=== PATIENT | male | born 1945 | race Caucasian/White ===

== ENCOUNTER 2021-09-16 12:10 | Inpatient (IN) | payer MEDICARE, OTHER, MEDICAID ==
[~2021-09-16 12:10] MED LIST: Enoxaparin 30 MG/0.3 ML Syringe SUBCUT SCH
[2021-09-16 13:30] LABS: CHLORIDE,CL 112 mEq/L (98-106); SODIUM,NA 153 mEq/L (136-145)
[2021-09-16] MEDS ORDERED: Ondansetron 4 MG/2 ML SDV IV PRN (14:38)
[2021-09-16] MEDS ORDERED: Acetaminophen 325 MG Tab PO PRN (14:38)
[2021-09-16] MEDS ORDERED: Sodium Chloride 0.9% 10 ML Syringe FLUSH PRN (14:38)
[2021-09-16] MEDS ORDERED: Bisacodyl 5 MG Tab PO PRN (14:46)
[2021-09-16] MEDS: Lactated Ringers 1,000 ML IV SCH (16:31)
[2021-09-16] MEDS: ZIPRASIDONE HCL 60 MG PO SCH (19:50)
[2021-09-16] MEDS: Carbidopa/Levodopa 25-100 MG Tab PO SCH (19:50)
[2021-09-16] MEDS: Melatonin 3 MG Tab PO SCH (19:50)
[2021-09-17] MEDS: Lactated Ringers 1,000 ML IV SCH ×2 (02:12→13:22)
[2021-09-17] MEDS ORDERED: Non-Formulary Medication 1 Each (Cholecalciferol (Vitamin D3) [Vitamin D3] 1,000 UNIT Caps PO SCH (08:00)
[2021-09-17] MEDS: Carbidopa/Levodopa 25-100 MG Tab PO SCH ×3 (08:04→19:45)
[2021-09-17] MEDS: Hydrochlorothiazide 12.5 MG Cap PO SCH (08:04)
[2021-09-17] MEDS: Enoxaparin 30 MG/0.3 ML Syringe SUBCUT SCH (08:04)
[2021-09-17] MEDS: Losartan 100 MG Tab PO SCH (08:04)
[2021-09-17] MEDS: ZIPRASIDONE HCL 60 MG PO SCH ×2 (08:05→19:46)
[2021-09-17 08:17] LABS: CHLORIDE,CL 116 mEq/L (98-106); SODIUM,NA 157 mEq/L (136-145)
[2021-09-17] MEDS ORDERED: Iopamidol 755 Mg/ML 100 ML Bottle IVPUSH ONE (10:36)
[2021-09-17] MEDS: Melatonin 3 MG Tab PO SCH (19:44)
[2021-09-18] MEDS: Lactated Ringers 1,000 ML IV SCH ×3 (00:04→20:12)
[2021-09-18 06:35] LABS: CHLORIDE,CL 115 mEq/L (98-106); SODIUM,NA 156 mEq/L (136-145)
[2021-09-18] MEDS: Losartan 100 MG Tab PO SCH (07:49)
[2021-09-18] MEDS: Hydrochlorothiazide 12.5 MG Cap PO SCH (07:49)
[2021-09-18] MEDS: Enoxaparin 30 MG/0.3 ML Syringe SUBCUT SCH (07:49)
[2021-09-18] MEDS: Carbidopa/Levodopa 25-100 MG Tab PO SCH ×3 (07:51→19:37)
[2021-09-18] MEDS: ZIPRASIDONE HCL 60 MG PO SCH ×2 (07:59→19:38)
[2021-09-18] MEDS ORDERED: Polyethylene Glycol 3350 Powder 17 GM Packet PO ONE (08:06)
[2021-09-18] MEDS: Melatonin 3 MG Tab PO SCH (19:37)
[2021-09-19] MEDS: Lactated Ringers 1,000 ML IV SCH (06:04)
[2021-09-19 07:33] LABS: CHLORIDE,CL 110 mEq/L (98-106); SODIUM,NA 147 mEq/L (136-145)
[2021-09-19 07:49] VITALS: BP 132/67; PULSE 69
[2021-09-19] MEDS: Hydrochlorothiazide 12.5 MG Cap PO SCH (07:49)
[2021-09-19] MEDS: Losartan 100 MG Tab PO SCH (07:50)
[2021-09-19] MEDS: Enoxaparin 30 MG/0.3 ML Syringe SUBCUT SCH (07:50)
[2021-09-19] MEDS: Carbidopa/Levodopa 25-100 MG Tab PO SCH (07:50)
[2021-09-19] MEDS: ZIPRASIDONE HCL 60 MG PO SCH (07:53)
[2021-09-19] MEDS ORDERED: Tamsulosin 0.4 MG Cap.ER PO SCH (09:30)
== END 2021-09-19 10:35 | disposition home or self-care (01) | DRG 395 ==
LOC: CC.FCMC 12:10 → CC.MS 12:10 → UNDOADMIN 13:59 → CC.MS 14:49
PROVIDERS: ADMIT Physician Assistant Medical; ATTEND Family Medicine
PROC: 0D9670Z Drainage of Stomach with Drainage Device, Via Natural or Artificial Opening (ICD-10-PCS; principal; 2021-09-16)
DX: K63.89 Other specified diseases of intestine (principal); R33.9 Retention of urine, unspecified; I10 Essential (primary) hypertension; N40.0 Benign prostatic hyperplasia without lower urinary tract symptoms; N32.3 Diverticulum of bladder; G30.9 Alzheimer's disease, unspecified; F02.80 Dementia in other diseases classified elsewhere, unspecified severity, without behavioral disturbance, psychotic disturbance, mood disturbance, and anxiety; F41.9 Anxiety disorder, unspecified; F32.A Depression, unspecified; K31.89 Other diseases of stomach and duodenum; Z79.899 Other long term (current) drug therapy; Z88.8 Allergy status to other drugs, medicaments and biological substances
CPT/HCPCS: 36415; 51702; 71045; 74019; 74177; 80048; 80053; 81001; 85025; 86140; A9270-GY; J1650; J7120; Q9967

== ENCOUNTER 2021-11-09 13:22 | Emergency (ER) | payer MEDICARE, OTHER, MEDICAID ==
[2021-11-09 14:00] VITALS: BP 131/70; PULSE 79
[2021-11-09] MEDS ORDERED: Sodium Chloride 0.9% 10 ML Syringe FLUSH PRN (14:19)
[2021-11-09] MEDS ORDERED: Morphine 2 MG/ML SYRINGE IV ONE (14:20)
== END 2021-11-09 15:15 | disposition critical access hospital (66) ==
LOC: CC.ED 13:22
DX: S72.002A Fracture of unspecified part of neck of left femur, initial encounter for closed fracture (principal); I10 Essential (primary) hypertension; N40.0 Benign prostatic hyperplasia without lower urinary tract symptoms; Z88.8 Allergy status to other drugs, medicaments and biological substances; Z79.899 Other long term (current) drug therapy; W18.30XA Fall on same level, unspecified, initial encounter; Y92.129 Unspecified place in nursing home as the place of occurrence of the external cause
CPT/HCPCS: 96374; 99284; 99284-25; J2270

== ENCOUNTER 2023-03-31 11:15 | Inpatient (IN) | payer MEDICARE, OTHER, MEDICAID ==
[2023-03-31] MEDS ORDERED: Piperacillin/Tazobactam 4.5 GM in Sodium Chloride 0.9% 100 ML IV ONE (11:44)
[2023-03-31] MEDS ORDERED: Sodium Chloride 0.9% 1,000 ML IV ONE (11:44)
[2023-03-31 11:49] LABS: BASOPHILS ABSOLUTE AUTO 0.02 10^3/uL (0.00-0.50); BASOPHILS PERCENT AUTO 0.1 % (0-1); EOSINOPHILS ABSOLUTE AUTO 0.01 10^3/uL (0.00-1.50); EOSINOPHILS PERCENT AUTO 0.1 % (0-6); HEMATOCRIT 45.1 % (42.0-52.0); HEMOGLOBIN 15.1 g/dL (14.0-18.0); IMMATURE GRAN ABSOLUTE AUTO 0.01 10^3/uL (0.00-0.49); IMMATURE GRAN PERCENT AUTO 0.1 % (0.0-4.9); LYMPHOCYTES ABSOLUTE AUTO 1.46 10^3/uL (0.60-5.00); MEAN CORPUSCULAR HEMOGLOBIN 32.3 pg (27.0-32.0); MEAN CORPUSCULAR HGB CONC 33.5 g/dL (32.0-36.0); MEAN CORPUSCULAR VOLUME 96.6 fL (83.0-97.0); MONOCYTES ABSOLUTE AUTO 1.29 10^3/uL (0.00-1.50); MONOCYTES PERCENT AUTO 8.8 % (0-10); NEUTROPHILS ABSOLUTE AUTO 11.79 x10^3/uL (1.80-8.00); NEUTROPHILS PERCENT AUTO 80.9 % (41-71); PLATELET COUNT,PLT 170 10^3/uL (150-400); RED BLOOD CELL COUNT 4.67 x10^6/uL (4.50-6.00); WHITE BLOOD CELL COUNT,WBC 14.6 10^3/uL (4.0-11.0)
[2023-03-31 12:07] LABS: ALBUMIN 3.2 g/dL (3.4-5.0); BILIRUBIN TOTAL 0.7 mg/dL (0.0-1.0); C-REACTIVE PROTEIN 2.76 mg/dL (<=0.30); CALCIUM 9.7 mg/dL (8.4-10.1); EST CRCL DRUG DOSING (CG) 55.52 mL/min; MAGNESIUM 1.7 mg/dL (1.8-2.4); POTASSIUM,K 3.9 mEq/L (3.5-5.0); PROTEIN TOTAL,TP 7.5 g/dL (6.4-8.2)
[2023-03-31] MEDS ORDERED: Docusate Sodium 100 MG Cap PO PRN (14:36)
[2023-03-31] MEDS ORDERED: Polyethylene Glycol 3350 Powder 17 GM Packet PO PRN (14:36)
[2023-03-31] MEDS ORDERED: Sodium Chloride 0.9% 1,000 ML IV STA (14:36)
[2023-03-31] MEDS ORDERED: Albuterol/Ipratropium 3.0-0.5 MG/3 ML Neb Soln NEB PRN (14:36)
[2023-03-31] MEDS: Carbidopa/Levodopa 25-100 MG Tab PO SCH ×2 (15:13→19:21)
[2023-03-31] MEDS: Acetaminophen 325 MG Tab PO PRN ×2 (17:23→23:45)
[2023-03-31] MEDS: Piperacillin/Tazobactam 3.375 GM in Sodium Chloride 0.9% 100 ML IV SCH (19:20)
[2023-03-31] MEDS: Melatonin 3 MG Tab PO SCH (19:21)
[2023-03-31] MEDS: Divalproex Sodium Delayed-Release 250 MG Tab.CR PO SCH (19:21)
[2023-03-31] MEDS: ZIPRASIDONE HCL 60 MG PO SCH (19:21)
[2023-03-31] MEDS: Enoxaparin 40 MG/0.4 ML Syringe SUBCUT SCH (19:21)
[2023-04-01] MEDS: Piperacillin/Tazobactam 3.375 GM in Sodium Chloride 0.9% 100 ML IV SCH ×3 (03:33→19:33)
[2023-04-01 07:17] LABS: BASOPHILS ABSOLUTE AUTO 0.01 10^3/uL (0.00-0.50); BASOPHILS PERCENT AUTO 0.1 % (0-1); EOSINOPHILS ABSOLUTE AUTO 0.05 10^3/uL (0.00-1.50); EOSINOPHILS PERCENT AUTO 0.5 % (0-6); HEMATOCRIT 39.2 % (42.0-52.0); HEMOGLOBIN 12.9 g/dL (14.0-18.0); IMMATURE GRAN ABSOLUTE AUTO 0.01 10^3/uL (0.00-0.49); IMMATURE GRAN PERCENT AUTO 0.1 % (0.0-4.9); LYMPHOCYTES ABSOLUTE AUTO 1.94 10^3/uL (0.60-5.00); LYMPHOCYTES PERCENT AUTO 18.2 % (24-44); MEAN CORPUSCULAR HEMOGLOBIN 32.3 pg (27.0-32.0); MEAN CORPUSCULAR HGB CONC 32.9 g/dL (32.0-36.0); MEAN CORPUSCULAR VOLUME 98.2 fL (83.0-97.0); MONOCYTES PERCENT AUTO 7.5 % (0-10); NEUTROPHILS ABSOLUTE AUTO 7.87 x10^3/uL (1.80-8.00); NEUTROPHILS PERCENT AUTO 73.6 % (41-71); PLATELET COUNT,PLT 141 10^3/uL (150-400); RED BLOOD CELL COUNT 3.99 x10^6/uL (4.50-6.00); WHITE BLOOD CELL COUNT,WBC 10.7 10^3/uL (4.0-11.0)
[2023-04-01] MEDS: Losartan 25 MG Tab PO SCH (07:39)
[2023-04-01] MEDS: Tamsulosin 0.4 MG Cap.ER PO SCH (07:40)
[2023-04-01] MEDS: Divalproex Sodium Delayed-Release 250 MG Tab.CR PO SCH ×2 (07:40→19:32)
[2023-04-01] MEDS: Carbidopa/Levodopa 25-100 MG Tab PO SCH ×3 (07:40→19:32)
[2023-04-01] MEDS: ZIPRASIDONE HCL 60 MG PO SCH ×2 (07:42→19:37)
[2023-04-01 07:56] LABS: CALCIUM 9.1 mg/dL (8.4-10.1); EST CRCL DRUG DOSING (CG) 55.52 mL/min; MAGNESIUM 1.7 mg/dL (1.8-2.4); POTASSIUM,K 3.8 mEq/L (3.5-5.0)
[2023-04-01] MEDS: Psyllium with Sucrose Powder 3.4 GM Packet PO SCH (08:05)
[2023-04-01] MEDS: Albuterol/Ipratropium 3.0-0.5 MG/3 ML Neb Soln NEB SCH ×3 (11:43→19:32)
[2023-04-01] MEDS: Enoxaparin 40 MG/0.4 ML Syringe SUBCUT SCH (19:32)
[2023-04-01] MEDS: Melatonin 3 MG Tab PO SCH (19:32)
[2023-04-02] MEDS: Piperacillin/Tazobactam 3.375 GM in Sodium Chloride 0.9% 100 ML IV SCH ×3 (03:34→19:40)
[2023-04-02] MEDS: Divalproex Sodium Delayed-Release 250 MG Tab.CR PO SCH ×2 (07:27→19:41)
[2023-04-02] MEDS: Carbidopa/Levodopa 25-100 MG Tab PO SCH ×3 (07:28→19:41)
[2023-04-02] MEDS: Tamsulosin 0.4 MG Cap.ER PO SCH (07:28)
[2023-04-02] MEDS: Albuterol/Ipratropium 3.0-0.5 MG/3 ML Neb Soln NEB SCH ×4 (07:28→19:41)
[2023-04-02] MEDS: ZIPRASIDONE HCL 60 MG PO SCH ×2 (07:29→19:39)
[2023-04-02] MEDS: Losartan 25 MG Tab PO SCH (07:34)
[2023-04-02 07:44] LABS: BASOPHILS ABSOLUTE AUTO 0.01 10^3/uL (0.00-0.50); BASOPHILS PERCENT AUTO 0.2 % (0-1); EOSINOPHILS ABSOLUTE AUTO 0.23 10^3/uL (0.00-1.50); HEMATOCRIT 38.2 % (42.0-52.0); HEMOGLOBIN 12.5 g/dL (14.0-18.0); IMMATURE GRAN ABSOLUTE AUTO 0.01 10^3/uL (0.00-0.49); IMMATURE GRAN PERCENT AUTO 0.2 % (0.0-4.9); LYMPHOCYTES ABSOLUTE AUTO 1.41 10^3/uL (0.60-5.00); LYMPHOCYTES PERCENT AUTO 24.2 % (24-44); MEAN CORPUSCULAR HEMOGLOBIN 32.4 pg (27.0-32.0); MEAN CORPUSCULAR HGB CONC 32.7 g/dL (32.0-36.0); MONOCYTES ABSOLUTE AUTO 0.62 10^3/uL (0.00-1.50); MONOCYTES PERCENT AUTO 10.7 % (0-10); NEUTROPHILS ABSOLUTE AUTO 3.54 x10^3/uL (1.80-8.00); NEUTROPHILS PERCENT AUTO 60.7 % (41-71); PLATELET COUNT,PLT 128 10^3/uL (150-400); RED BLOOD CELL COUNT 3.86 x10^6/uL (4.50-6.00); WHITE BLOOD CELL COUNT,WBC 5.8 10^3/uL (4.0-11.0)
[2023-04-02 07:50] LABS: CALCIUM 9.2 mg/dL (8.4-10.1); CREATININE 0.8 mg/dL (0.7-1.3); EST CRCL DRUG DOSING (CG) 69.4 mL/min; POTASSIUM,K 3.7 mEq/L (3.5-5.0)
[2023-04-02] MEDS: Enoxaparin 40 MG/0.4 ML Syringe SUBCUT SCH (19:40)
[2023-04-02] MEDS: Melatonin 3 MG Tab PO SCH (19:41)
[2023-04-03] MEDS: Piperacillin/Tazobactam 3.375 GM in Sodium Chloride 0.9% 100 ML IV SCH (03:52)
[2023-04-03 07:55] LABS: BASOPHILS ABSOLUTE AUTO 0.01 10^3/uL (0.00-0.50); BASOPHILS PERCENT AUTO 0.1 % (0-1); EOSINOPHILS ABSOLUTE AUTO 0.13 10^3/uL (0.00-1.50); EOSINOPHILS PERCENT AUTO 1.9 % (0-6); HEMATOCRIT 39.2 % (42.0-52.0); IMMATURE GRAN ABSOLUTE AUTO 0.01 10^3/uL (0.00-0.49); IMMATURE GRAN PERCENT AUTO 0.1 % (0.0-4.9); LYMPHOCYTES ABSOLUTE AUTO 1.51 10^3/uL (0.60-5.00); LYMPHOCYTES PERCENT AUTO 21.9 % (24-44); MEAN CORPUSCULAR HEMOGLOBIN 32.8 pg (27.0-32.0); MEAN CORPUSCULAR HGB CONC 33.2 g/dL (32.0-36.0); MONOCYTES PERCENT AUTO 10.2 % (0-10); NEUTROPHILS ABSOLUTE AUTO 4.53 x10^3/uL (1.80-8.00); NEUTROPHILS PERCENT AUTO 65.8 % (41-71); PLATELET COUNT,PLT 153 10^3/uL (150-400); RED BLOOD CELL COUNT 3.96 x10^6/uL (4.50-6.00); WHITE BLOOD CELL COUNT,WBC 6.9 10^3/uL (4.0-11.0)
[2023-04-03 07:59] LABS: CALCIUM 9.6 mg/dL (8.4-10.1); CREATININE 0.9 mg/dL (0.7-1.3); EST CRCL DRUG DOSING (CG) 61.69 mL/min; POTASSIUM,K 3.3 mEq/L (3.5-5.0)
[2023-04-03] MEDS: Tamsulosin 0.4 MG Cap.ER PO SCH (08:33)
[2023-04-03] MEDS: Albuterol/Ipratropium 3.0-0.5 MG/3 ML Neb Soln NEB SCH ×2 (08:33→12:04)
[2023-04-03] MEDS: Losartan 25 MG Tab PO SCH (08:33)
[2023-04-03] MEDS: ZIPRASIDONE HCL 60 MG PO SCH (08:34)
[2023-04-03] MEDS: Divalproex Sodium Delayed-Release 250 MG Tab.CR PO SCH (08:34)
[2023-04-03] MEDS: Psyllium with Sucrose Powder 3.4 GM Packet PO SCH (08:34)
[2023-04-03] MEDS: Carbidopa/Levodopa 25-100 MG Tab PO SCH (08:34)
[2023-04-03] MEDS ORDERED: Potassium Chloride 10 MEQ Tab.ER PO ONE (08:47)
[2023-04-03] MEDS ORDERED: Piperacillin/Tazobactam 3.375 GM in Sodium Chloride 0.9% 100 ML IV ONE (12:15)
[2023-04-03] MEDS: Potassium Chloride 10 MEQ Tab.ER PO ONE ×2 (12:18→12:38)
[2023-04-03 13:56] VITALS: BP 135/68; PULSE 68
== END 2023-04-03 13:55 | disposition home or self-care (01) | DRG 195 ==
LOC: CC.ED 11:15 → CC.MS 12:50 → UNDOADMIN 12:50 → CC.MS 13:25
PROVIDERS: ADMIT Nurse Practitioner; ATTEND Nurse Practitioner
DX: J18.9 Pneumonia, unspecified organism (principal); Y95 Nosocomial condition; E86.0 Dehydration; G20 Parkinson's disease; F03.90 Unspecified dementia, unspecified severity, without behavioral disturbance, psychotic disturbance, mood disturbance, and anxiety; F20.9 Schizophrenia, unspecified; Z20.822 Contact with and (suspected) exposure to COVID-19; I10 Essential (primary) hypertension; N40.0 Benign prostatic hyperplasia without lower urinary tract symptoms; G47.00 Insomnia, unspecified; F41.9 Anxiety disorder, unspecified; F31.9 Bipolar disorder, unspecified; K59.00 Constipation, unspecified; R09.02 Hypoxemia; B96.89 Other specified bacterial agents as the cause of diseases classified elsewhere; Z88.8 Allergy status to other drugs, medicaments and biological substances; Z79.899 Other long term (current) drug therapy
CPT/HCPCS: 36415; 71045; 80048; 80053; 83605; 83735; 84484; 85025; 86140; 87040; 87070; 87077; 87205; 87804; 93005; 93010; 94640; 99223; 99232; 99233; 99238; A9270-GY; J1650; J2543; J3490; J7030; J7620-GY; U0002

== ENCOUNTER 2023-04-08 13:25 | Emergency (ER) | payer MEDICARE, OTHER, MEDICAID ==
[2023-04-08] MEDS ORDERED: Sodium Chloride 0.9% 10 ML Syringe FLUSH PRN (13:32)
[2023-04-08 13:39] VITALS: BP 118/81
[2023-04-08 13:41] VITALS: PULSE 108
[2023-04-08] MEDS ORDERED: Iopamidol 755 Mg/ML 100 ML Bottle IVPUSH ONE (13:45)
[2023-04-08 14:04] LABS: BASOPHILS ABSOLUTE AUTO 0.02 10^3/uL (0.00-0.50); BASOPHILS PERCENT AUTO 0.1 % (0-1); HEMATOCRIT 45.9 % (42.0-52.0); IMMATURE GRAN ABSOLUTE AUTO 0.03 10^3/uL (0.00-0.49); IMMATURE GRAN PERCENT AUTO 0.2 % (0.0-4.9); LYMPHOCYTES ABSOLUTE AUTO 1.81 10^3/uL (0.60-5.00); LYMPHOCYTES PERCENT AUTO 9.7 % (24-44); MEAN CORPUSCULAR HEMOGLOBIN 32.5 pg (27.0-32.0); MEAN CORPUSCULAR HGB CONC 32.7 g/dL (32.0-36.0); MEAN CORPUSCULAR VOLUME 99.6 fL (83.0-97.0); MONOCYTES ABSOLUTE AUTO 1.75 10^3/uL (0.00-1.50); MONOCYTES PERCENT AUTO 9.4 % (0-10); NEUTROPHILS ABSOLUTE AUTO 14.99 x10^3/uL (1.80-8.00); NEUTROPHILS PERCENT AUTO 80.6 % (41-71); PLATELET COUNT,PLT 283 10^3/uL (150-400); RED BLOOD CELL COUNT 4.61 x10^6/uL (4.50-6.00); WHITE BLOOD CELL COUNT,WBC 18.6 10^3/uL (4.0-11.0)
[2023-04-08 14:18] LABS: ALANINE AMINOTRANSFERASE,ALT 55 U/L (12-78); ALBUMIN 2.6 g/dL (3.4-5.0); ALKALINE PHOSPHATASE 121 U/L (46-116); ASPARTATE AMNIOTRANSFERASE,AST 40 U/L (15-37); BILIRUBIN TOTAL 0.5 mg/dL (0.0-1.0); BLOOD UREA NITROGEN,BUN 38 mg/dL (7-18); C-REACTIVE PROTEIN 5.02 mg/dL (<=0.30); CALCIUM 10.5 mg/dL (8.4-10.1); CARBON DIOXIDE,CO2 29 mmol/L (21-32); CREATININE 1.7 mg/dL (0.7-1.3); GLUCOSE RANDOM 167 mg/dL (75-99)
[2023-04-08 14:25] LABS: CHLORIDE,CL 109 mEq/L (98-106); SODIUM,NA 148 mEq/L (136-145)
[2023-04-08 14:28] LABS: ESTIMATED GFR 42 mL/min (>=60); POTASSIUM,K 2.9 mEq/L (3.5-5.0)
[2023-04-08 14:33] LABS: LACTIC ACID 3.3 mmol/L (0.4-2.0)
[2023-04-08] MEDS ORDERED: Sodium Chloride 0.9% 1,000 ML IV ONE (15:44)
[2023-04-08] MEDS ORDERED: Piperacillin/Tazobactam 4.5 GM in Sodium Chloride 0.9% 100 ML IV ONE (16:14)
[2023-04-08] MEDS: Potassium Chloride Riders 20 MEQ in Premix Bag 1 BAG IV SCH ×3 (16:16→18:34)
[2023-04-08] MEDS ORDERED: metroNIDAZOLE/Normal Saline 500 MG in Premix Bag 1 BAG IV ONE (16:34)
[2023-04-08 17:16] LABS: APPEARANCE,URINE CLEAR (CLEAR); BILIRUBIN,URINE NEGATIVE (NEGATIVE); COLOR,URINE ORANGE (YELLOW); GLUCOSE,URINE NEGATIVE (NEGATIVE); KETONES,URINE NEGATIVE (NEGATIVE); LEUKOCYTE ESTERASE,URINE NEGATIVE (NEGATIVE); NITRITE,URINE NEGATIVE (NEGATIVE); OCCULT BLOOD,URINE NEGATIVE (NEGATIVE); PH,URINE 5.5 (4.5-8.0); PROTEIN,URINE TRACE mg/dL (NEGATIVE); UROBILINOGEN,URINE 0.2 EU/dL (0.2-1.0)
[2023-04-08 17:24] LABS: MUCUS,URINE FEW /HPF (NOT SEEN); RBC,URINE 0-5 /HPF (0-5); SQUAMOUS EPITHELIAL CELLS,UR NOT SEEN /HPF (NOT SEEN); WBC,URINE NOT SEEN /HPF (0-5)
[2023-04-08 17:25] LABS: BACTERIA,URINE NOT SEEN /HPF (NOT SEEN)
[2023-04-08] MEDS ORDERED: Sodium Chloride 0.9% 1,000 ML IV SCH (17:45)
== END 2023-04-08 19:10 ==
LOC: CC.ED 13:25
DX: A41.9 Sepsis, unspecified organism (principal); R65.20 Severe sepsis without septic shock; N17.9 Acute kidney failure, unspecified; D72.829 Elevated white blood cell count, unspecified; E87.6 Hypokalemia; E83.52 Hypercalcemia; R14.0 Abdominal distension (gaseous); I10 Essential (primary) hypertension; G30.0 Alzheimer's disease with early onset; F02.80 Dementia in other diseases classified elsewhere, unspecified severity, without behavioral disturbance, psychotic disturbance, mood disturbance, and anxiety; Z86.16 Personal history of COVID-19; Z79.899 Other long term (current) drug therapy; Z88.8 Allergy status to other drugs, medicaments and biological substances
CPT/HCPCS: 36415; 71045; 74177; 80053; 81001; 83605; 85025; 86140; 87040; 93005; 93010; 96365; 96367; 96368; 99284; 99285-25; J2543; J3480; J3490; J7030; Q9967